=== PATIENT | female | born 1960 | race Caucasian/White ===

== ENCOUNTER 2024-10-24 12:58 | Day surgery (SDC) | payer BC ==
[~2024-10-24 12:58] MED LIST: LIDOCAINE 1% (10MG/ML) FOR IV START INTRADERMA PRN
[2024-10-24] MEDS: IV FLUID CONTINUATION 1,000 ML IV ONE ×2 (13:38→14:49)
[2024-10-24 13:44] VITALS: RESP 16; TEMP 97.1
[2024-10-24] MEDS: LACTATED RINGERS 1,000 ML IV SCH (13:50)
[2024-10-24] MEDS ORDERED: PROPOFOL 10 MG/ML 20 ML VIAL IV ONE (14:50)
--- NOTE | 2024-10-24 15:18 | P.PCN ---
Date of Procedure: 10/24/24 Procedure(s) Performed: BRIEF HISTORY: Patient is a 64-year-old pleasant white female scheduled for an elective colonoscopy as a part of screening for prior history of colon polyps. Last colonoscopy was 6 years ago. PROCEDURE PERFORMED: Colonoscopy. PREOPERATIVE DIAGNOSIS: Screening for history of colon polyps. IV sedation per Anesthesia. PROCEDURE: After informed consent was obtained, the patient, was brought into the endoscopy unit. IV sedation was administered by Anesthesia under continuous monitoring. Digital rectal examination was normal. Initially the Olympus CF-160 flexible video colonoscope was then inserted in the rectum, gradually advanced into the cecum without any difficulty. Careful examination was performed as the scope was gradually being withdrawn. Ileocecal valve and the appendiceal orifice were visualized and appeared normal. Prep was poor in several areas of the colo n. Mucosa of the cecum, ascending colon, transverse colon, descending colon, sigmoid colon, and rectum appeared normal. Scattered sigmoid diverticulosis. Retroflexion was performed in the rectum and no lesions were seen. The patient tolerated the procedure well. IMPRESSION: Normal-appearing colon from rectum to cecum with no evidence of colorectal neoplasia. Poor prep in several areas of the colon Scattered sigmoid diverticulosis. RECOMMENDATIONS: Findings of this examination were discussed with the patient as well as her family.. She was advised to have repeat screening colonoscopy in 3 years because of extremely poor prep on today's examination
[2024-10-24 15:39] VITALS: BP 101/58; PULSE 73
== END 2024-10-24 16:14 | disposition home or self-care (01) ==
LOC: ORWHC2ENDO 12:58
PROVIDERS: ATTEND Internal Medicine Gastroenterology
DX: Z12.11 Encounter for screening for malignant neoplasm of colon (principal); Z86.0100 Personal history of colon polyps, unspecified; K57.30 Diverticulosis of large intestine without perforation or abscess without bleeding
CPT/HCPCS: 45378; J2704